=== PATIENT | male | born 1955 | race Caucasian/White ===

== ENCOUNTER 2017-09-09 13:33 | Emergency (ER) | payer OTHER ==
--- NOTE | 2017-09-09 13:35 | PDOC ---
History of Present Illness - General Chief Complaint: Pain, Acute Stated Complaint: left leg pain Time Seen by Provider: 09/09/17 13:34 - History of Present Illness Initial Comments: 09/09/17 13:50 Chief complaint: Paresthesias History of present illness: Patient complains of a burning sensation well localized to the mid left calf, medial aspect. This began about 4 days ago, occurs in paroxysms lasting anywhere from a few seconds to 30 seconds and resolve spontaneously. There are no other symptoms. Review of systems: Denies fever/chills, headache, URI symptoms, sore throat, cough. Denies chest pain, shortness of breath, abdominal pain, nausea, vomiting , diarrhea, visual or focal neurologic symptoms other than as noted above, unsteadiness of gait. Denies muscle weakness, posterior calf pain or swelling, edema, distal numbness tingling pain or weakness. Remainder systems reviewed and found to be negative. The paresthesias are not positional, occurred at rest or when active and at random Past medical history: Prostatectomy via laparoscopy one month ago without complication. High blood pressure. Loh-sctfanc-jqvymejry diabetes. 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 Family history: Reviewed and significant for diabetes. Physical exam: Alert and oriented well-developed well-nourished no acute distress cheerful and cooperative. No symptoms at present Afebrile, vital signs normal PERRLA, fundi benign, ENT clear Neck supple without bruit mass or nodes Chest clear CV without murmur rub or gallop regular rate no murmurs rubs or gallops pulses full and symmetric including 3-4+ pulses in the left lower extremity, dorsalis pedis and posterior tibial, and good capillary refill to all the toes Abdomen soft nontender without mass or organomegaly. Neurological intact. Cranial nerves intact. No focal sensory or motor deficits. No decreased sensation or hyperesthesia in the area of the symptoms. Babinski's down. Skin clear, no rash, no edema, adequate turgor and wet mucous membranes Extremities no CCE Impression: Localized cutaneous neuritis, probably from long-standing diabetes, momentary without recurrent. No other neurologic findings. No circulatory deficits Plan: Glucose control. Neurology follow-up. Return to ER if symptoms worsen for further evaluation and treatment. Past History - Past Medical History Allergies/Adverse Reactions: Allergies Allergy/AdvReac Type Severity Reaction Status Date / Time No Known Allergies Allergy Verified 09/09/17 13:33 Home Medications: Ambulatory Orders Amlodipine Besylate [Norvasc -] 10 mg PO DAILY 09/09/17 Lisinopril [Prinivil -] 40 mg PO DAILY 09/09/17 Metformin HCl [Metformin HCl ER] 500 mg PO DAILY 09/09/17 Metoprolol Succinate [Toprol Xl -] 25 mg PO DAILY 09/09/17 Anemia: No Asthma: No Cancer: No Cardiac Disorders: No CVA: No COPD: No CHF: No Dementia: No Diabetes: No GI Disorders: No Disorders: No HTN: Yes Hypercholesterolemia: No Liver Disease: No Seizures: No Thyroid Disease: No - Surgical History Abdominal Surgery: No Appendectomy: No Cardiac Surgery: No Cholecystectomy: No Lung Surgery: No Neurologic Surgery: No Orthopedic Surgery: No - Suicide/Smoking/Psychosocial Hx Smoking Status: No Smoking History: Never smoked Have you smoked in the past 12 months: No Number of Cigarettes Smoked Daily: 0 Cigars Per Day: 0 Hx Alcohol Use: No Drug/Substance Use Hx: No Substance Use Type: None Hx Substance Use Treatment: No Medical Decision Making - Medical Decision Making 09/09/17 14:25 Glucose is 172. Patient's localized symptoms and the brevity of his paroxysms suggest a relatively benign cutaneous nerve inflammation which should resolve as spontaneously. He is instructed to return to the ER symptoms worsen otherwise see his primary physician for follow-up in one week. To pay special attention to his diet and check his sugars regularly. *DC/Admit/Observation/Transfer Diagnosis at time of Disposition: Neuritis due to diabetes mellitus - Discharge Dispostion Disposition: HOME Condition at time of disposition: Stable Admit: No - Patient Instructions Printed Discharge Instructions: DI for Diabetes Type 2 Additional Instructions: Return to ER if additional symptoms develop. Check her sugars. See primary physician for follow-up within 1 week.
[2017-09-09 13:39] VITALS: BP 143/94; PULSE 87; TEMP 99; BMI 28.0
[2017-09-09] MEDS ORDERED: HEMOQUE CONTROL SOLUTION ONE (14:00)
== END 2017-09-09 14:25 | disposition home or self-care (01) ==
LOC: FER 13:33
DX: E11.41 Type 2 diabetes mellitus with diabetic mononeuropathy (principal); Z79.84 Long term (current) use of oral hypoglycemic drugs; I10 Essential (primary) hypertension
CPT/HCPCS: 99282-25

== ENCOUNTER 2018-12-08 12:32 | Day surgery (SDC) | payer OTHER ==
[2018-11-25 13:24] VITALS: BMI 29.1
[2018-12-08] MEDS ORDERED: PROPOFOL 20 ML ONE ×2 (13:34)
[2018-12-08] MEDS ORDERED: MIDAZOLAM HCL 2 MG/2 ML SINGLE DOSE VIAL ONE (13:34)
[2018-12-08] MEDS ORDERED: LIDOCAINE HCL 2% (50ML VIAL) INF ONE (13:42)
[2018-12-08] MEDS ORDERED: ONDANSETRON 4 MG/2 ML VIAL ONE (14:01)
[2018-12-08] MEDS ORDERED: DEXAMETHASONE SOD PHOSPHATE 4 MG/1 ML VIAL ONE (14:01)
[2018-12-08] MEDS ORDERED: KETOROLAC TROMETHAMINE 30 MG/1 ML VIAL ONE (14:01)
[2018-12-08 15:20] VITALS: TEMP 97.5
[2018-12-08 15:30] VITALS: BP 124/74; PULSE 60
--- NOTE | 2018-12-09 08:52 | OP ---
DATE OF OPERATION: 12/08/2018 PREOPERATIVE DIAGNOSES: 1. Left carpal tunnel syndrome. 2. Left long trigger finger. POSTOPERATIVE DIAGNOSES: 1. Left carpal tunnel syndrome. 2. Left long trigger finger. OPERATIVE PROCEDURE: 1. Left carpal tunnel release. 2. Left long trigger finger release. SURGEON: Grzegorz Mcclure MD ANESTHESIA: Local with sedation. COMPLICATIONS: None. ESTIMATED BLOOD LOSS: Minimal. INDICATION FOR PROCEDURE: The patient is a 63-year-old male with the above finding indicated for operative treatment. Risks, benefits and alternatives were discussed with the patient at length. Proper informed consent was obtained. PROCEDURE: After proper identification of patient and correct operative site patient brought to the operating room, placed supine on the table, prominences well padded. Sedation and local anesthesia were given. Left upper extremity was prepped and draped in the usual sterile fashion. Well-padded tourniquet was placed over the sterile prep. Esmarch bandage to exsanguinate the left upper extremity. Tourniquet was inflated to 250 mmHg. Longitudinal incision made over the proximal aspect of the palm. Incision was taken sharply through the skin with blunt and sharp dissection through subcutaneous tissues. Palmar fascia was divided longitudinally. Transverse carpal ligament along with distal 4 cm of antebrachial fascia were divided longitudinally under direct visualization with loupe magnification. This provided complete release of the median nerve at the wrist. Wound was repaired with 5-0 nylon suture. A 2nd incision was made over the A1 mahesh to the long finger. Incision was taken sharply through the skin, with blunt and sharp dissection through the subcutaneous tissues. A1 mahesh was identified and divided. Flexing and extending the finger provided no further triggering. Wound was irrigated and repaired with 5-0 nylon suture. Sterile dressings were applied. Patient was brought to the recovery room in stable condition having tolerated the procedure well. Ghada [id number]
== END 2018-12-08 15:10 | disposition home or self-care (01) ==
LOC: FASU 12:32
PROVIDERS: ATTEND Orthopaedic Surgery Hand Surgery
PROC: 01N50ZZ Release Median Nerve, Open Approach (ICD-10-PCS; principal; 2018-12-08 08:30)
PROC: 0LN80ZZ Release Left Hand Tendon, Open Approach (ICD-10-PCS; 2018-12-08 08:30)
DX: G56.02 Carpal tunnel syndrome, left upper limb (principal); M65.332 Trigger finger, left middle finger
CPT/HCPCS: 82962

== ENCOUNTER 2018-12-11 10:37 | Emergency (ER) | payer OTHER ==
--- NOTE | 2018-12-11 10:41 | PDOC ---
History of Present Illness - General Chief Complaint: Pain, Acute Stated Complaint: PAIN AND SWELLING TO SURGICAL SITE History Source: Patient Exam Limitations: No Limitations - History of Present Illness Initial Comments: 12/11/18 11:05 63 yo M with a hx of HTN and DM presents to the emergency department with left hand swelling and pain since yesterday post-op day 3. Per the patient, he had dupuytrens contracture correction on 12/08/2018 as well as carpal tunnel repair both in the left hand. Per the patient, he began developing symptoms yesterday. He states he is unable to fully flex is left third digit and has 6/10 throbbing pain throughout the hand. Denies fever and chills. His surgery was done by Dr. Mcclure. Denies the following: headaches, visual changes, nausea, vomiting, chest pain, SOB, abdominal pain, dysuria, hematuria, diarrhea, hematocheza, and leg pain/swelling. Pmhx: HTN and DM Shx: Prostate removal 2016. Surgeries referred to above Meds: lisinopril, amlodipine, metoprolol, aspirin, metformin, HCTZ Allergies: NKDA Social: Denies tobacco, alcohol, and substance abuse. Past History - Past Medical History Allergies/Adverse Reactions: Allergies Allergy/AdvReac Type Severity Reaction Status Date / Time No Known Allergies Allergy Verified 12/11/18 10:38 Home Medications: Ambulatory Orders Amlodipine Besylate [Norvasc -] 10 mg PO DAILY 09/09/17 Lisinopril [Prinivil -] 40 mg PO DAILY 09/09/17 metFORMIN HCL [Metformin ER Gastric] 500 mg PO BID 09/09/17 Aspirin 81 mg PO DAILY 11/25/18 Hydrochlorothiazide 12.5 mg PO DAILY 11/25/18 Metoprolol Tartrate 50 mg PO DAILY 11/26/18 Clindamycin [Cleocin -] 300 mg PO QID #28 capsule 12/11/18 Anemia: No Asthma: No Cancer: Yes (PROSTATE 2016) Cardiac Disorders: No CVA: No COPD: No CHF: No Dementia: No Diabetes: No (BORDERLINE(STATES HE IS COMING OFF METFORMIN DUE TO WT LOSS)) GI Disorders: No Disorders: Yes (PROSTATE) HTN: Yes Hypercholesterolemia: No Liver Disease: No Seizures: No Thyroid Disease: No - Surgical History Abdominal Surgery: No Appendectomy: No Cardiac Surgery: No Cholecystectomy: No Lung Surgery: No Neurologic Surgery: No Orthopedic Surgery: No - Suicide/Smoking/Psychosocial Hx Smoking Status: No Smoking History: Never smoked Have you smoked in the past 12 months: No Number of Cigarettes Smoked Daily: 0 Cigars Per Day: 0 Hx Alcohol Use: No Drug/Substance Use Hx: No Substance Use Type: None Hx Substance Use Treatment: No Review of Systems - Review of Systems Able to Perform ROS?: Yes Is the patient limited Yakut proficient: No Constitutional: No: Chills, Diaphoresis, Fever, Weakness HEENTM: No: Eye Pain, Recent change in vision, Ear Pain, Nose Pain, Throat Pain , Mouth Pain Respiratory: No: Cough, Shortness of Breath, SOB with Exertion, Hemoptysis Cardiac (ROS): No: Chest Pain, Lightheadedness, Palpitations, Syncope, Chest Tightness ABD/GI: No: Constipated, Diarrhea, Nausea, Poor Appetite, Poor Fluid Intake, Rectal Bleeding, Vomiting, Tarry Stools : No: Burning, Dysuria, Hematuria, Urgency Musculoskeletal: Yes: Joint Pain (3rd digit Left hand MCP and left wrist). No: Back Pain, Neck Pain Integumentary: Yes: Erythema. No: Pallor, Pruritus, Rash Neurological: No: Headache, Numbness, Tingling, Tremors, Dizziness Psychiatric: No: Change in Appetite Endocrine: No: Unexplained Weight Gain Hematologic/Lymphatic: No: Anemia *Physical Exam - Physical Exam General Appearance: Yes: Nourished, Appropriately Dressed. No: Apparent Distress, Intoxicated HEENT: positive: EOMI, SAQIB, Normal Voice, Symmetrical, Pharynx Normal, Hearing Grossly Normal. negative: Pale Conjunctivae, Scleral Icterus (R), Scleral Icterus (L), Muffled/Hoarse voice, Pharyngeal Erythema, Tonsillar Exudate, Tonsillar Erythema, Nasal Congestion, Rhinorrhea, Sinus Tenderness, Excessive drooling Neck: positive: Trachea midline. negative: Tender, Lymphadenopathy (R), Lymphadenopathy (L), Tender lateral, Tender midline Respiratory/Chest: positive: Lungs Clear, Normal Breath Sounds. negative: Chest Tender, Respiratory Distress, Accessory Muscle Use, Crackles, Rales, Rhonchi, Stridor, Wheezing, Hyperresonant Cardiovascular: positive: Regular Rhythm, Regular Rate, S1, S2. negative: Systolic Murmur Gastrointestinal/Abdominal: positive: Normal Bowel Sounds, Flat, Soft. negative : Tender, Distended, Tenderness, Hernia Lymphatic: negative: Adenopathy Musculoskeletal: positive: Normal Inspection. negative: CVA Tenderness, Vertebral Tenderness Extremity: positive: Normal Capillary Refill, Tender (throughout the flexion aspect of the third digit left hand. pain with passive extension throughout the left third digit. surgicial changes with sutures consistent with carpal tunnel and dupuytren's contracture repair present. no pus, drainage, and blood from the surgical sites. ), Swelling (at the third digit throughout left hand), Erythema. negative: Normal Inspection, Normal Range of Motion, Calf Tenderness Integumentary: positive: Normal Color, Dry, Warm. negative: Clammy, Diaphoresis , Moist, Hives, Petechiae, Rash Neurologic: positive: beaver trapper II-XII NML intact, Fully Oriented, Alert, Normal Mood/ Affect, Normal Response. negative: Motor Strength 5/5, EOM Palsy, Facial Droop , Sensory Deficit ED Treatment Course - LABORATORY CBC & Chemistry Diagram: 12/11/18 11:22 12/11/18 11:22 Medical Decision Making - Medical Decision Making 63 yo M with a hx of HTN and DM presents to the emergency department with left hand swelling and pain since yesterday post-op day 3. Initial vitals: Initial Vital Signs Temp Pulse Resp BP Pulse Ox 98.5 F 81 18 171/106 H 97 12/11/18 10:38 12/11/18 10:38 12/11/18 10:38 12/11/18 10:38 12/11/18 10:38 Work up: ddx: tensosynovitis vs abscess vs post surgical pain vs cellulitis. patient presents on physical exam with swelling of the left third digit, pain with passive extension of the finger, flexion of the digit at rest, and tenderness to palpation along the third digit with warmth and erythema at the site of the dupuytren's contracture correction. will order cbc, cmp, pt/inr/aptt, lactic acid, type and screen and will start on vancomycin and zosyn (given DM hx). Laboratory Tests 12/11/18 12/11/18 12/11/18 11:22 11:22 11:22 WBC 10.1 RBC 5.44 Hgb 16.0 Hct 47.1 MCV 86.7 MCH 29.5 MCHC 34.0 RDW 13.1 Plt Count 215 MPV 9.0 Absolute Neuts (auto) 7.3 Neutrophils % 73.2 Lymphocytes % 15.5 Monocytes % 9.1 Eosinophils % 1.5 Basophils % 0.7 PT with INR 11.6 INR 1.04 PTT (Actin FS) 30.6 Sodium 135 L Potassium 3.8 Chloride 101 Carbon Dioxide 27 Anion Gap 7 L BUN 19 H Creatinine 0.8 Creat Clearance w eGFR > 60 Random Glucose 242 H Calcium 9.2 Total Bilirubin 0.8 AST 24 ALT 30 Alkaline Phosphatase 70 Total Protein 7.9 Albumin 4.4 labs within normal limits with pending lactic acid. afebrile. 12/11/18 12:[address] Reagan regarding the suspected tensosynovitis. Per Dr. Reagan, he doesn't believe this is an infection given its day 3 with infections usually appearing day 7-10. He stated he would come to the emergency department to evaluate the patient prior to admission. 12/11/18 13:21 Dr. Reagan evaluated the patient in the ED. Does not think there is an infection, ok to be discharged home with close follow up with Dr. Mcclure. Will discharge the patient with a wound check for tomorrow in our ED with a request to have an appointment with Dr. Mcclure for Thursday. Dispo: Discharge *DC/Admit/Observation/Transfer Diagnosis at time of Disposition: Hand pain, left, Post-operative pain - Discharge Dispostion Disposition: HOME Condition at time of disposition: Stable Decision to Admit order: No - Prescriptions Prescriptions: Clindamycin [Cleocin -] 300 mg PO QID #28 capsule - Referrals Referrals: Erica Bergeron [Primary Care Provider] - Grzegorz Mcclure MD [Staff Physician] - - Patient Instructions Printed Discharge Instructions: DI for Postoperative Pain Additional Instructions: You were seen in the emergency department for the evaluation of your left hand pain. your labs were within normal limits and you were evaluated by Dr. Reagan who works with Dr. Mcclure. Please return to the emergency department tomorrow for a wound check and proceed to follow up with Dr. Mcclure on Thursday. Please return to the emergency department if you develop worsening symptoms or new concerning symptoms such as fever, chills, inability to move hand, and red streaks going up the left hand and arm. please follow your discharge instructions for post operative care given to you by Dr. Mcclure. Thank you. - Post Discharge Activity
[2018-12-11 10:48] VITALS: PULSE 81; TEMP 98.5; BMI 29.1
[2018-12-11] MEDS ORDERED: VANCOMYCIN 1,000 MG in DEXTROSE 5%-WATER - 250 ML IVPB ONE (10:58)
[2018-12-11] MEDS ORDERED: PIPERACILLIN/TAZOB 3.375 GM 3.375 GM in DEXTROSE 5%-WATER - 50 ML IVPB ONE (10:58)
[2018-12-11] MEDS ORDERED: VANCOMYCIN 1,000 MG VIAL (RESTRICTED TO ID ONLY) ONE (11:06)
[2018-12-11] MEDS ORDERED: PIPERACILLIN/TAZOBACTAM 3.375 GM VIAL IVPB ONE (11:07)
[2018-12-11 11:34] VITALS: BP 147/84
[2018-12-11 11:40] LABS: BASO % 0.7 % (0-2.0); EOS % 1.5 % (0-4.5); HEMATOCRIT 47.1 % (35.4-49); LYMPH % 15.5 % (8-40); MCH 29.5 pg (25.7-33.7); MEAN CELL VOLUME 86.7 fl (80-96); MONO % 9.1 % (3.8-10.2); NEUT % 73.2 % (42.8-82.8); PLATELET COUNT 215 K/MM3 (134-434); RBC 5.44 M/mm3 (4.00-5.60); RDW 13.1 % (11.9-15.9); WHITE BLOOD COUNT 10.1 K/mm3 (4.0-10.8)
[2018-12-11 11:45] LABS: ACTIVATED PTT 30.6 SECONDS (25.2-36.5)
[2018-12-11 11:46] LABS: ALBUMIN 4.4 g/dl (3.5-5.0); ALK PHOS 70 U/L (32-92); ANION GAP 7 MMOL/L (8-16); BILIRUBIN,TOTAL 0.8 mg/dl (0.2-1.0); BLOOD UREA NITROGEN 19 mg/dl (7-18); CALCIUM 9.2 mg/dl (8.4-10.2); CHLORIDE 101 mmol/L (98-107); CO2 27 mmol/L (22-28); CREATININE 0.8 mg/dl (0.6-1.3); GLUCOSE,RANDOM 242 mg/dl (74-106); POTASSIUM 3.8 mmol/L (3.5-5.1); SGOT/AST 24 U/L (10-42); SGPT/ALT 30 U/L (10-40); SODIUM 135 mmol/L (136-145); TOT PROT 7.9 g/dl (6.4-8.3)
[2018-12-11 12:32] LABS: INR 1.04 (0.82-1.09); PROTHROMBIN TIME (PATIENT) 11.6 SEC (10.2-13.0)
--- NOTE | 2018-12-11 13:22 | PDOC ---
Attending Attestation - Resident Resident Name: LibanCesar - ED Attending Attestation I have performed the following: I have examined & evaluated the patient, The case was reviewed & discussed with the resident, I agree w/resident's findings & plan, Exceptions are as noted - HPI HPI: 12/11/18 13:17 63 yo male with h/o DM HTN pod #3 from trigger finger release and carpal release ( DR Mcclure) here wtih c/o worsening pain and swelling. pt states initially post op could move finger well, now pain and swelling. no f/c no drainage from wound. pain mild did not take anything for pain. had been taking percocet . took ibuprofen night prior. started taking amoxicillin one week ago which he had from dental surgery. no n/v no numbness no tingling. - Physicial Exam PE: 12/11/18 13:19 awake alert lungs clear bilaterally heart rrr no mrg left hand with two wounds . mild erythema near distal middle finger wound on [place] and dorsal aspect. wound near wrist cdi. no erythema. mild eccymosis. . n/v intact. no exudate. 2+ radial ulnar pulses. pain with passive extension. - Medical Decision Making 12/11/18 13:22 concerns for possible tenosynovitis, vs. abscess vs. post op inflammation. pt labs sent , focused ED ultrasound mild hypoechoic fluid surrounding tendon sheath, no focal collection. pt wbc normal. given vanco and zosyn in ED. evaluated in ED by covering orthopedist dr. Marc, who states pt ok to go home on oral antiobiotics. feels admission not necessary. will prescribe pt with clindamycin. told to come to ed for wound check day following ( thursday ) and will see dr Mcclure on thursday in 2 days. any worsening signs of infection such as worsening redness. swelling or fever told to come back immediately.
--- NOTE | 2018-12-11 13:50 | CONSULT ---
Consult - text type - Consultation Consultation Note: Asked to eval this 63M who underwent left carpal tunnel and middle finger trigger release by Dr Mcclure on 12/08/18. He came to ER this morning for increasing swelling and stiffness of hand since yesterday. No fevers. Has received Vanco/Zosyn in ER. PMH: HTN/DM Meds: reviewed in chart All: NKDA FH: n/c SH: negative cig/etoh/ivda ROS: no recent fevers/chills/weight loss PE: AOX3, NAD Afebrile Left hand palmar wounds intact. minimal redness around suture line of trigger incision onlt generalized ecchymosis wrist/hand dorsal and palmar Swollen middle, index, and ring fingers. Stiff to ROM both flex and extension no drainage no purulence no proximal/distal redenss or cellulitis WBC:10.1 Imp: s/p CTR/Trigger release 3 days ago with increasing swelling -no clear infection or drainage -strict elevation above the heart, icing -patient and present - will monitor clinical exam over the next 24hrs: if fevers; increasing pain; increasing swelling; drainage; spreading redness - will come back to ER -agree with oral antibiotic prophylaxis -will follow up with Dr Mcclure in office in two days otherwise
--- NOTE | 2018-12-12 19:39 | EKG ---
Test Reason : Blood Pressure : / mmHG Vent. Rate : 076 BPM Atrial Rate : 076 BPM P-R Int : 178 ms QRS Dur : 086 ms QT Int : 378 ms P-R-T Axes : 037 -01 015 degrees QTc Int : 425 ms SINUS RHYTHM WITH PREMATURE SUPRAVENTRICULAR COMPLEXES MINIMAL VOLTAGE CRITERIA FOR LVH, MAY BE NORMAL VARIANT BORDERLINE ECG NO PREVIOUS ECGS AVAILABLE Confirmed by ASHELY LEDESMA, MIGUEL ([id number]) on 12/12/2018 7:39:20 PM Referred By: STEVEN HERNANDEZ Confirmed By:MIGUEL LUND MD
== END 2018-12-11 13:35 | disposition home or self-care (01) ==
LOC: FER 10:37
DX: M79.642 Pain in left hand (principal); G89.18 Other acute postprocedural pain; I10 Essential (primary) hypertension; E11.9 Type 2 diabetes mellitus without complications
CPT/HCPCS: 36415; 80053; 83605; 85025; 85610; 85730; 86850; 86900; 86901; 87040; 93005; 99283-25

== ENCOUNTER 2021-09-16 02:10 | Emergency (ER) | payer BC, OTHER ==
[2021-09-16 02:21] VITALS: BP 136/77; PULSE 97; TEMP 99.3; BMI 28.0
[2021-09-16] MEDS ORDERED: KETOROLAC TROMETHAMINE 30 MG/1 ML VIAL IM ONE (02:23)
[2021-09-16] MEDS ORDERED: KETOROLAC TROMETHAMINE 30 MG/1 ML VIAL ONE (02:27)
[2021-09-16] MEDS ORDERED: LIDOCAINE 5% TOPICAL PATCH TP ONE (02:51)
[2021-09-16] MEDS ORDERED: LIDOCAINE 5% TOPICAL PATCH ONE (03:17)
[2021-09-16] MEDS ORDERED: LIDOCAINE PATCH REMOVAL MC SCH (22:00)
== END 2021-09-16 06:01 | disposition home or self-care (01) ==
LOC: FER 02:10
PROC: 3E0233Z Introduction of Anti-inflammatory into Muscle, Percutaneous Approach (ICD-10-PCS; principal; 2021-09-16)
DX: M54.50 Low back pain, unspecified (principal)
CPT/HCPCS: 72100-TC-FY; 96372; 99284-25

== ENCOUNTER 2022-08-22 21:29 | Emergency (ER) | payer BC ==
[2022-08-22] MEDS ORDERED: LIDOCAINE 5% TOPICAL PATCH TP ONE (21:33)
[2022-08-22] MEDS ORDERED: IBUPROFEN 400 MG TABLET (FP) PO ONE ×2 (21:33→21:39)
[2022-08-22] MEDS ORDERED: LIDOCAINE 5% TOPICAL PATCH ONE (21:39)
[2022-08-22 21:49] VITALS: BP 147/80; PULSE 90; RESP 18; TEMP 99.3; BMI 29.6
[2022-08-22] MEDS ORDERED: LIDOCAINE PATCH REMOVAL MC SCH (22:00)
== END 2022-08-22 22:17 | disposition home or self-care (01) ==
LOC: FER 21:29
DX: M54.41 Lumbago with sciatica, right side (principal)
CPT/HCPCS: 99283-25

== ENCOUNTER 2022-10-03 06:41 | Emergency (ER) | payer BC ==
[2022-10-03 06:57] VITALS: BP 147/89; PULSE 108; RESP 17; TEMP 98.4; BMI 29.6
[2022-10-03] MEDS ORDERED: LIDOCAINE 5% TOPICAL PATCH TP ONE (07:20)
[2022-10-03] MEDS ORDERED: IBUPROFEN 400 MG TABLET (FP) PO ONE ×2 (07:20→07:23)
[2022-10-03] MEDS ORDERED: LIDOCAINE 5% TOPICAL PATCH ONE (07:23)
[2022-10-03] MEDS ORDERED: LIDOCAINE PATCH REMOVAL MC SCH (22:00)
== END 2022-10-03 08:27 | disposition home or self-care (01) ==
LOC: FER 06:41
DX: M54.2 Cervicalgia (principal)
CPT/HCPCS: 99283-25

== ENCOUNTER 2024-01-06 05:44 | Emergency (ER) | payer BC ==
[2024-01-06 05:55] VITALS: BP 157/86; PULSE 98; RESP 18; TEMP 98; BMI 28.8
[2024-01-06] MEDS ORDERED: ACETAMINOPHEN 500 MG TABLET (FP) ONE (05:57)
[2024-01-06] MEDS: ACETAMINOPHEN 500 MG TABLET (FP) PO ONE (06:00)
== END 2024-01-06 09:02 | disposition home or self-care (01) ==
LOC: FER 05:44
DX: M25.512 Pain in left shoulder (principal); W00.0XXA Fall on same level due to ice and snow, initial encounter
CPT/HCPCS: 73030-TC-LT-FY; 99283-25

== ENCOUNTER 2024-02-18 06:11 | Day surgery (SDC) | payer BC ==
[2024-02-11 09:43] VITALS: BMI 28.7
[2024-02-18] MEDS ORDERED: ONDANSETRON 4 MG/2 ML VIAL ONE (07:03)
[2024-02-18] MEDS ORDERED: DEXAMETHASONE SOD PHOSPHATE 4 MG/1 ML VIAL ONE (07:03)
[2024-02-18] MEDS ORDERED: LIDOCAINE HCL/PF 2% SDV 5ML VIAL ONE (07:03)
[2024-02-18] MEDS ORDERED: PROPOFOL 100 ML ONE (07:03)
[2024-02-18] MEDS ORDERED: SUCCINYLCHOLINE CHLORIDE 200 MG/10 ML SYRINGE ONE (07:03)
[2024-02-18] MEDS ORDERED: MIDAZOLAM HCL 2 MG/2 ML SINGLE DOSE VIAL ONE (07:04)
[2024-02-18] MEDS ORDERED: ROCURONIUM BROMIDE 50 MG/5 ML SYRINGE ONE (07:04)
[2024-02-18] MEDS ORDERED: DEXAMETHASONE SOD PHOSPHATE/PF 10 MG/ML SDV ONE (07:29)
[2024-02-18] MEDS ORDERED: ROPIVACAINE HCL 0.5% 30ML VIAL ONE (07:29)
[2024-02-18] MEDS ORDERED: PROPOFOL 20 ML ONE ×2 (08:49→09:56)
[2024-02-18] MEDS ORDERED: PROPOFOL 40 ML ONE ×2 (09:18→10:26)
[2024-02-18] MEDS ORDERED: oxyCODONE HCL 5 MG TABLET PO PRN (13:13)
[2024-02-18] MEDS ORDERED: LACTATED RINGERS SOLUTION 1,000 ML IV SCH (13:15)
[2024-02-18 13:29] VITALS: TEMP 97.8
[2024-02-18 14:25] VITALS: BP 120/70; PULSE 72; RESP 18
== END 2024-02-18 14:33 | disposition home or self-care (01) ==
LOC: FASU 06:11
PROVIDERS: ATTEND Orthopaedic Surgery Sports Medicine
PROC: 0LS44ZZ Reposition Left Upper Arm Tendon, Percutaneous Endoscopic Approach (ICD-10-PCS; principal; 2024-02-18 08:27)
PROC: 0RNK4ZZ Release Left Shoulder Joint, Percutaneous Endoscopic Approach (ICD-10-PCS; 2024-02-18 08:27)
DX: M75.122 Complete rotator cuff tear or rupture of left shoulder, not specified as traumatic (principal); M75.22 Bicipital tendinitis, left shoulder; M75.42 Impingement syndrome of left shoulder
CPT/HCPCS: 94760; C1713

== ENCOUNTER 2024-09-09 04:57 | Emergency (ER) | payer BC ==
[2024-09-09 05:02] VITALS: RESP 18; BMI 28.8
[2024-09-09 05:06] VITALS: BP 177/93; PULSE 106; TEMP 97.9
[2024-09-09] MEDS ORDERED: KETOROLAC TROMETHAMINE 60 MG/2 ML VIAL ONE (05:19)
[2024-09-09] MEDS ORDERED: LIDOCAINE 5% TOPICAL PATCH ONE (05:19)
[2024-09-09] MEDS ORDERED: ACETAMINOPHEN 500 MG TABLET (FP) ONE (05:29)
[2024-09-09] MEDS: ACETAMINOPHEN 500 MG TABLET (FP) PO ONE (05:31)
[2024-09-09] MEDS: KETOROLAC TROMETHAMINE 60 MG/2 ML VIAL IM ONE (05:31)
[2024-09-09] MEDS: LIDOCAINE 5% TOPICAL PATCH TP ONE (05:32)
[2024-09-09] MEDS ORDERED: LIDOCAINE PATCH REMOVAL MC SCH (22:00)
== END 2024-09-09 09:51 | disposition home or self-care (01) ==
LOC: FER 04:57
PROC: 3E0233Z Introduction of Anti-inflammatory into Muscle, Percutaneous Approach (ICD-10-PCS; principal; 2024-09-09)
DX: M62.830 Muscle spasm of back (principal)
CPT/HCPCS: 99284-25

== ENCOUNTER 2024-09-09 11:45 | Inpatient (IN) | payer BC, OTHER ==
[2024-09-09] MEDS ORDERED: KETOROLAC TROMETHAMINE 30 MG/1 ML VIAL ONE (12:57)
[2024-09-09] MEDS: KETOROLAC TROMETHAMINE 30 MG/1 ML VIAL IM ONE (13:02)
[2024-09-09 13:20] LABS: INR 0.89 (0.83-1.09); PROTHROMBIN TIME (PATIENT) 10.2 SEC (9.7-13.0)
[2024-09-09 13:22] LABS: ACTIVATED PTT 31.1 SECONDS (25.2-36.5)
[2024-09-09 13:32] LABS: HEMATOCRIT 49.1 % (35.4-49); HEMOGLOBIN 15.9 G/dL (11.7-16.9); MCH 29.3 pg (25.7-33.7); MCHC 32.5 g/dl (32.0-35.9); MEAN CELL VOLUME 90.2 fl (80-96); MEAN PLT VOLUME 9.2 fl (7.5-11.1); PLATELET COUNT 174.4 10^3/uL (134-434); RBC 5.44 10^6/uL (4.00-5.60); RDW 14.1 % (11.9-15.9); WHITE BLOOD COUNT 12.7 10^3/uL (4.0-10.8)
[2024-09-09 13:41] LABS: ALBUMIN 4.7 g/dl (3.4-5.0); BILIRUBIN,TOTAL 0.5 mg/dl (0.2-1); CALCIUM 9.8 mg/dl (8.5-10.1); CREATININE 0.8 mg/dl (0.6-1.3); POTASSIUM 3.5 mmol/L (3.5-5.1); TOT PROT 6.9 g/dl (6.4-8.2)
[2024-09-09 13:43] LABS: PLATELET ESTIMATE ADEQUATE
[2024-09-09] MEDS ORDERED: diazePAM 5 MG TABLET ONE (19:00)
[2024-09-09] MEDS: diazePAM 5 MG TABLET PO ONE (19:04)
[2024-09-09] MEDS ORDERED: LIDOCAINE 5% TOPICAL PATCH ONE (19:55)
[2024-09-09] MEDS: LIDOCAINE 5% TOPICAL PATCH TP ONE (20:01)
[2024-09-09 20:53] LABS: EPITHELIAL CELLS 0-5 /hpf
[2024-09-09 22:03] VITALS: BMI 28.1
[2024-09-09] MEDS: ACETAMINOPHEN 1000 MG/100 ML BAG IVPB ONE (22:30)
[2024-09-09] MEDS: LIDOCAINE PATCH REMOVAL MC SCH (22:32)
[2024-09-09] MEDS: METHOCARBAMOL 500 MG TABLET PO ONE (22:33)
[2024-09-09] MEDS: POTASSIUM CHLORIDE TABS 20 MEQ TABLET.ER (FP) PO ONE (22:35)
[2024-09-09] MEDS: INSULIN ASPART SLIDING SCALE (NOVOLOG) 1 VIAL SQ SCH (22:37)
[2024-09-10] MEDS: ASPIRIN 81 MG CHEWABLE TABLETS PO SCH ×2 (06:46→09:40)
[2024-09-10] MEDS ORDERED: HYDROmorphone HCL/PF 1 MG/ML VIAL IVPUSH PRN (07:41)
[2024-09-10] MEDS ORDERED: HYDROmorphone HCL/PF 1 MG/ML VIAL IVPB PRN (07:50)
[2024-09-10] MEDS: methylPREDNISolone 4 MG TABLET PO ONE (08:02)
[2024-09-10] MEDS: ACETAMINOPHEN 500 MG TABLET (FP) PO SCH (08:03)
[2024-09-10] MEDS: NAPROXEN 500 MG TABLET PO SCH (08:03)
[2024-09-10] MEDS: METHOCARBAMOL 500 MG TABLET PO SCH (08:03)
[2024-09-10 09:34] LABS: CALCIUM 9.7 mg/dl (8.5-10.1); CREATININE 0.9 mg/dl (0.6-1.3); MAGNESIUM 2.1 mg/dL (1.8-2.4); PHOSPHOROUS 3.2 (2.5-4.9); POTASSIUM 3.8 mmol/L (3.5-5.1)
[2024-09-10] MEDS: oxyCODONE HCL 5 MG TABLET PO PRN (09:40)
[2024-09-10] MEDS: amLODIPine BESYLATE 10 MG TABLET (FP) PO SCH (09:40)
[2024-09-10] MEDS: HYDROCHLOROTHIAZIDE 25 MG TABLET (FP) PO SCH (09:40)
[2024-09-10] MEDS: ENOXAPARIN NA (PORCINE) 40 MG/0.4 ML DISP.SYRIN SQ SCH (09:42)
[2024-09-10] MEDS ORDERED: metFORMIN HCL 500 MG TABLET (FP) PO SCH (10:00)
[2024-09-10 12:37] LABS: BASO % 0.3 % (0-2.0); EOS % 0.3 % (0-4.5); HEMATOCRIT 44.9 % (35.4-49); HEMOGLOBIN 14.9 GM/dL (11.7-16.9); LYMPH % 14.1 % (8-40); MCH 29.3 pg (25.7-33.7); MCHC 33.2 g/dl (32.0-35.9); MEAN CELL VOLUME 88.4 fl (80-96); MEAN PLT VOLUME 9.8 fl (7.5-11.1); MONO % 11.9 % (3.8-10.2); NEUT % 73.4 % (42.8-82.8); PLATELET COUNT 217 10^3/uL (134-434); RBC 5.08 M/mm3 (4.00-5.60); RDW 13.8 % (11.9-15.9); WHITE BLOOD COUNT 12.8 K/mm3 (4.0-10.0)
[2024-09-10] MEDS: LIDOCAINE 5% TOPICAL PATCH TP SCH (17:12)
[2024-09-10] MEDS: LIDOCAINE PATCH REMOVAL MC SCH (21:24)
[2024-09-11] MEDS: traMADol HCL 50 MG TABLET PO PRN (02:19)
[2024-09-11] MEDS: methylPREDNISolone 4 MG TABLET PO ONE (07:52)
[2024-09-11 08:08] LABS: HEMATOCRIT 43.4 % (35.4-49); HEMOGLOBIN 13.9 G/dL (11.7-16.9); MCH 29.2 pg (25.7-33.7); MEAN CELL VOLUME 91.1 fl (80-96); MEAN PLT VOLUME 9.8 fl (7.5-11.1); PLATELET COUNT 173.8 10^3/uL (134-434); RBC 4.76 10^6/uL (4.00-5.60); RDW 14.6 % (11.9-15.9); WHITE BLOOD COUNT 14.1 10^3/uL (4.0-10.8)
[2024-09-11 08:36] LABS: CREATININE 0.9 mg/dl (0.6-1.3); POTASSIUM 3.6 mmol/L (3.5-5.1)
[2024-09-11 08:47] LABS: PLATELET ESTIMATE ADEQUATE
[2024-09-12] MEDS: methylPREDNISolone 4 MG TABLET PO ONE (08:11)
[2024-09-13] MEDS: methylPREDNISolone 4 MG TABLET PO ONE (08:32)
[2024-09-13 22:24] VITALS: RESP 18
[2024-09-14 10:59] VITALS: BP 154/76; PULSE 65; TEMP 97.9
== END 2024-09-14 13:53 | DRG 552 ==
LOC: FER 11:45 → FM/S 16:48
PROVIDERS: ADMIT Internal Medicine
DX: M62.830 Muscle spasm of back (principal); G89.3 Neoplasm related pain (acute) (chronic); M48.062 Spinal stenosis, lumbar region with neurogenic claudication; E11.9 Type 2 diabetes mellitus without complications; I10 Essential (primary) hypertension; R26.2 Difficulty in walking, not elsewhere classified; C61 Malignant neoplasm of prostate
CPT/HCPCS: 36415; 72131-TC; 80048; 80053; 81003; 81015; 82962; 83735; 84100; 85025; 85027; 85610; 85730; 87086; 97116-GP; 97161-GP; 99284-25; 99285-25; J0131